=== PATIENT | male | born 1990 | race African-American/Black ===

== ENCOUNTER 2016-12-17 11:13 | Inpatient (IN) | payer MEDICAID ==
[~2016-12-17] VITALS: Ht 195.6 cm; Wt 83.8 kg
[~2016-12-17 11:13] MED LIST: NOCURR
[2016-12-17 11:58] LABS: BASOPHILS # (AUTO) 0.03 K/uL (0.00-0.20); BASOPHILS % (AUTO) 0.8 % (0.0-2.0); EOSINOPHILS # (AUTO) 0.19 K/uL (0.00-0.70); EOSINOPHILS % (AUTO) 5.58 % (1.0-6.0); HEMATOCRIT 43.7 % (41-53); HEMOGLOBIN 14.8 g/dL (13.5-17.5); LYMPHOCYTES # (AUTO) 1.2 K/uL (1.0-4.8); MEAN CORPUSCULAR HEMOGLOBIN 27.4 pg (26.0-34.0); MEAN CORPUSCULAR HGB CONC 33.8 G/dL (31.0-37.0); MEAN CORPUSCULAR VOLUME 81 fL (80-100); MONOCYTES # (AUTO) 0.5 K/uL (0.1-1.0); MONOCYTES % (AUTO) 13.3 % (2.0-9.0); NEUTROPHILS # (AUTO) 1.5 K/uL (1.8-7.7); NEUTROPHILS % (AUTO) 45.4 % (40.0-70.0); PLATELET COUNT (AUTO) 295 K/uL (150-450); RED CELL DISTRIBUTION WIDTH 14.7 % (11.5-14.5); WHITE BLOOD COUNT (AUTO) 3.4 K/uL (4.5-11.0)
[2016-12-17 12:52] LABS: ALANINE AMINOTRANSFERASE 21 U/L (12-78); ALBUMIN 3.6 g/dL (3.4-5.0); ANION GAP 3 mmol/L (8-16); ASPARTATE AMINOTRANSFERASE 18 U/L (15-37); BILIRUBIN,TOTAL 1.7 mg/dL (0.1-1.0); CALCIUM, TOTAL 8.4 mg/dL (8.8-10.5); CARBON DIOXIDE 31 mmol/L (22-29); CHLORIDE 105 mmol/L (98-107); CREATININE 1.26 mg/dL (0.60-1.30); GLOMERULAR FILTR. RATE CALC > 60 mL/min (>60); SODIUM SERUM 139 mmol/L (136-145); TOTAL PROTEIN, SERUM 6.3 g/dL (6.4-8.2); UREA NITROGEN, BLOOD 14 mg/dL (7-18)
[2016-12-17 13:08] LABS: RBC MORPHOLOGY COMMENT NORMAL RBC MORPH
[2016-12-17] MEDS ORDERED: HALOPERIDOL 5 MG TABLET PO PRN (15:00)
[2016-12-17] MEDS ORDERED: ZOLPIDEM TARTRATE 10 MG TABLET PO PRN (15:00)
[2016-12-17 17:12] VITALS: BP 122/77
[2016-12-17 18:05] LABS: APPEARANCE,URINE CLEAR (CLEAR); GLUCOSE, URINE (UA) NEGATIVE (NEGATIVE); KETONES,URINE TRACE mg/dL (NEGATIVE); LEUKOCYTE ESTERASE ,URINE NEGATIVE (NEGATIVE); OCCULT BLOOD,URINE NEGATIVE (NEGATIVE); PROTEIN,URINE NEGATIVE (NEGATIVE)
[2016-12-17 18:06] LABS: ADD UA MICROSCOPIC NO
[2016-12-18 09:23] VITALS: BP 99/65
[2016-12-18] MEDS ORDERED: MAG HYDROX/AL HYDROX/SIMETH ES 30 ML SUSPENSION UDCUP PO PRN (10:30)
[2016-12-18] MEDS ORDERED: MAGNESIUM HYDROXIDE SUSPENSION 30 ML UDCUP PO PRN (10:30)
[2016-12-18] MEDS ORDERED: BACITRACIN 28.4 GM OINTMENT TP PRN (10:30)
[2016-12-18] MEDS ORDERED: ONDANSETRON HCL 4 MG TABLET PO PRN (10:30)
[2016-12-18] MEDS ORDERED: IBUPROFEN 600 MG TABLET PO PRN (10:30)
[2016-12-18] MEDS ORDERED: ALBUTEROL SULFATE HFA 90 MCG/PUFF 8 GM INHALER IH PRN (10:30)
[2016-12-18] MEDS ORDERED: LOPERAMIDE HCL 2 MG CAPSULE PO PRN (10:30)
[2016-12-18] MEDS ORDERED: CloNIDine HCL 0.1 MG TABLET PO PRN (10:30)
[2016-12-18] MEDS ORDERED: PETROLATUM,WHITE 71 GM JELLY TP PRN (10:30)
[2016-12-18] MEDS ORDERED: ACETAMINOPHEN 325 MG TABLET PO PRN (10:30)
[2016-12-18] MEDS ORDERED: BENZOCAINE/MENTHOL LOZENGE [8 LOZENGES/PACKET] MM PRN (10:45)
[2016-12-18] MEDS: SERTRALINE HCL 50 MG TABLET PO SCH (11:23)
[2016-12-18 16:00] VITALS: BP 121/75
[2016-12-18] MEDS: LORazepam 2 MG TABLET PO PRN (16:09)
[2016-12-19] MEDS: SERTRALINE HCL 50 MG TABLET PO SCH (09:16)
[2016-12-19 09:28] VITALS: BP 122/71
[2016-12-19] MEDS: LORazepam 2 MG TABLET PO PRN (16:23)
[2016-12-20 09:00] VITALS: BP 100/54
[2016-12-20] MEDS: SERTRALINE HCL 50 MG TABLET PO SCH (09:05)
[2016-12-20 17:01] VITALS: BP 108/61
[2016-12-21] MEDS: SERTRALINE HCL 50 MG TABLET PO SCH (08:16)
[2016-12-21 09:00] VITALS: BP 105/64
[2016-12-21 16:55] VITALS: BP 112/68
[2016-12-22] MEDS ORDERED: SERT50TA12 PO (04:00)
== END 2016-12-22 07:30 | disposition home or self-care (01) | DRG 751 ==
LOC: EMS 11:15 → 3EI 16:15
PROVIDERS: ADMIT Psychiatry & Neurology Child & Adolescent Psychiatry; ATTEND Psychiatry & Neurology Child & Adolescent Psychiatry
DX: F32.2 Major depressive disorder, single episode, severe without psychotic features (principal); R45.851 Suicidal ideations; F12.90 Cannabis use, unspecified, uncomplicated; F15.10 Other stimulant abuse, uncomplicated; F17.200 Nicotine dependence, unspecified, uncomplicated
CPT/HCPCS: 99285; G0480

== ENCOUNTER 2016-12-29 19:05 | Inpatient (IN) | payer MEDICAID ==
[~2016-12-29] VITALS: Ht 195.6 cm; Wt 92.1 kg
[~2016-12-29 19:05] MED LIST changes: -NOCURR; +SERT50TA12 PO
[2016-12-29 22:13] VITALS: BP 127/85
[2016-12-30] MEDS: ZOLPIDEM TARTRATE 10 MG TABLET PO PRN ×2 (00:04→21:04)
[2016-12-30 00:07] VITALS: BP 119/62
[2016-12-30] MEDS ORDERED: PETROLATUM,WHITE 71 GM JELLY TP PRN (08:15)
[2016-12-30] MEDS ORDERED: IBUPROFEN 600 MG TABLET PO PRN (08:15)
[2016-12-30] MEDS ORDERED: ACETAMINOPHEN 325 MG TABLET PO PRN (08:15)
[2016-12-30] MEDS ORDERED: MAGNESIUM HYDROXIDE SUSPENSION 30 ML UDCUP PO PRN (08:15)
[2016-12-30] MEDS ORDERED: LOPERAMIDE HCL 2 MG CAPSULE PO PRN (08:15)
[2016-12-30] MEDS ORDERED: MAG HYDROX/AL HYDROX/SIMETH ES 30 ML SUSPENSION UDCUP PO PRN (08:15)
[2016-12-30] MEDS ORDERED: BACITRACIN 28.4 GM OINTMENT TP PRN (08:15)
[2016-12-30] MEDS ORDERED: ALBUTEROL SULFATE HFA 90 MCG/PUFF 8 GM INHALER IH PRN (08:15)
[2016-12-30] MEDS ORDERED: CloNIDine HCL 0.1 MG TABLET PO PRN (08:15)
[2016-12-30] MEDS ORDERED: BENZOCAINE/MENTHOL LOZENGE MM PRN (08:15)
[2016-12-30] MEDS ORDERED: ONDANSETRON HCL 4 MG TABLET PO PRN (08:15)
[2016-12-30 08:31] VITALS: BP 105/65
[2016-12-30 08:34] LABS: BASOPHILS % (AUTO) 0.6 % (0.0-2.0); EOSINOPHILS % (AUTO) 4.9 % (1.0-6.0); HEMATOCRIT 42.2 % (41-53); HEMOGLOBIN 14.1 g/dL (13.5-17.5); LYMPHOCYTES # (AUTO) 1.8 K/uL (1.0-4.8); LYMPHOCYTES % (AUTO) 43.8 % (22.0-44.0); MEAN CORPUSCULAR HEMOGLOBIN 27.5 pg (26.0-34.0); MEAN CORPUSCULAR HGB CONC 33.4 G/dL (31.0-37.0); MEAN CORPUSCULAR VOLUME 82 fL (80-100); MONOCYTES # (AUTO) 0.4 K/uL (0.1-1.0); MONOCYTES % (AUTO) 8.4 % (2.0-9.0); NEUTROPHILS # (AUTO) 1.8 K/uL (1.8-7.7); NEUTROPHILS % (AUTO) 42.3 % (40.0-70.0); PLATELET COUNT (AUTO) 235 K/uL (150-450); RED BLOOD CELL COUNT(AUTO) 5.13 MIL/uL (4.50-5.90); RED CELL DISTRIBUTION WIDTH 15.2 % (11.5-14.5); WHITE BLOOD COUNT (AUTO) 4.2 K/uL (4.5-11.0)
[2016-12-30 09:40] LABS: ALANINE AMINOTRANSFERASE 23 U/L (12-78); ALBUMIN 3.6 g/dL (3.4-5.0); ANION GAP 7 mmol/L (8-16); ASPARTATE AMINOTRANSFERASE 14 U/L (15-37); BILIRUBIN,TOTAL 0.9 mg/dL (0.1-1.0); CALCIUM, TOTAL 8.8 mg/dL (8.8-10.5); CARBON DIOXIDE 30 mmol/L (22-29); CHLORIDE 101 mmol/L (98-107); CREATININE 1.13 mg/dL (0.60-1.30); GLOMERULAR FILTR. RATE CALC > 60 mL/min (>60); POTASSIUM 3.9 mmol/L (3.5-5.1); SODIUM SERUM 138 mmol/L (136-145); THYROID STIMULATING HORMONE 2.47 uIU/mL (0.36-3.74); TOTAL PROTEIN, SERUM 6.4 g/dL (6.4-8.2); UREA NITROGEN, BLOOD 17 mg/dL (7-18)
[2016-12-30] MEDS: SERTRALINE HCL 50 MG TABLET PO SCH (09:55)
[2016-12-30] MEDS: LORazepam 2 MG TABLET PO PRN ×2 (09:55→22:54)
[2016-12-30 16:04] VITALS: BP 113/63
[2016-12-31 06:00] VITALS: BP 103/60
[2016-12-31 08:38] VITALS: BP 110/65
[2016-12-31] MEDS: SERTRALINE HCL 50 MG TABLET PO SCH ×2 (08:53→09:00)
[2016-12-31] MEDS: LORazepam 2 MG TABLET PO PRN ×3 (08:53→17:20)
[2016-12-31] MEDS: HALOPERIDOL 5 MG TABLET PO PRN (12:50)
[2016-12-31 16:22] VITALS: BP 114/65
[2016-12-31] MEDS: ZOLPIDEM TARTRATE 10 MG TABLET PO PRN (20:12)
[2017-01-01 00:32] VITALS: BP 113/62
[2017-01-01 08:23] VITALS: BP 115/68
[2017-01-01] MEDS: LORazepam 2 MG TABLET PO PRN (08:37)
[2017-01-01] MEDS: SERTRALINE HCL 50 MG TABLET PO SCH (08:37)
[2017-01-01] MEDS: HALOPERIDOL 5 MG TABLET PO PRN (08:37)
[2017-01-01 16:00] VITALS: BP 111/71
[2017-01-02 06:29] VITALS: BP 114/68
[2017-01-02] MEDS: SERTRALINE HCL 50 MG TABLET PO SCH (08:11)
[2017-01-02 08:33] VITALS: BP 110/62
[2017-01-02 08:43] LABS: APPEARANCE,URINE CLOUDY (CLEAR); GLUCOSE, URINE (UA) NEGATIVE (NEGATIVE); KETONES,URINE NEGATIVE (NEGATIVE); LEUKOCYTE ESTERASE ,URINE NEGATIVE (NEGATIVE); OCCULT BLOOD,URINE NEGATIVE (NEGATIVE); PROTEIN,URINE NEGATIVE (NEGATIVE)
[2017-01-02 08:47] LABS: ADD UA MICROSCOPIC NO
[2017-01-02 16:11] VITALS: BP 112/66
[2017-01-02] MEDS: ZOLPIDEM TARTRATE 10 MG TABLET PO PRN (20:12)
[2017-01-03 00:17] VITALS: BP 112/62
[2017-01-03] MEDS: LORazepam 2 MG TABLET PO PRN ×2 (00:17→12:05)
[2017-01-03] MEDS: HALOPERIDOL 5 MG TABLET PO PRN (01:32)
[2017-01-03] MEDS: SERTRALINE HCL 50 MG TABLET PO SCH (08:18)
[2017-01-03 08:30] VITALS: BP_SYST 104; BP_SYST 119; BP_DIAS 54; BP_DIAS 79
[2017-01-03 16:02] VITALS: BP 112/68
[2017-01-03] MEDS: ZOLPIDEM TARTRATE 10 MG TABLET PO PRN (20:57)
[2017-01-03 23:05] VITALS: BP 118/83
[2017-01-04 01:33] VITALS: BP_SYST 105; BP_SYST 110; BP_DIAS 62
[2017-01-04] MEDS: LORazepam 2 MG TABLET PO PRN (01:49)
[2017-01-04] MEDS: SERTRALINE HCL 50 MG TABLET PO SCH (08:24)
[2017-01-04 08:48] VITALS: BP 92/51
[2017-01-04 09:45] VITALS: BP 112/77
== END 2017-01-04 13:50 | disposition home or self-care (01) | DRG 751 ==
LOC: EDSTATUS 22:38 → B3A 22:55 → B2S 01-01 16:30
PROVIDERS: ATTEND Psychiatry & Neurology Child & Adolescent Psychiatry
DX: F33.2 Major depressive disorder, recurrent severe without psychotic features (principal); R45.851 Suicidal ideations; F19.10 Other psychoactive substance abuse, uncomplicated; F12.90 Cannabis use, unspecified, uncomplicated; F15.10 Other stimulant abuse, uncomplicated; F17.200 Nicotine dependence, unspecified, uncomplicated; G47.00 Insomnia, unspecified; Z71.51 Drug abuse counseling and surveillance of drug abuser; Z56.0 Unemployment, unspecified; Z71.6 Tobacco abuse counseling; Z79.899 Other long term (current) drug therapy; Z59.0 Homelessness
CPT/HCPCS: 80307; 84436; 84439; 84443; 87081

== ENCOUNTER 2017-11-18 16:26 | Emergency (ER) | payer SELFPAY ==
[~2017-11-18] VITALS: Ht 195.6 cm; Wt 89.0 kg
[2017-11-18] MEDS ORDERED: MIRT15 PO (16:31)
[2017-11-18] MEDS ORDERED: RISP2 PO (16:31)
[2017-11-18 17:12] VITALS: BP 131/76
== END 2017-11-18 17:40 | disposition left against medical advice (07) ==
LOC: EMS 16:27
DX: R07.9 Chest pain, unspecified (principal); F41.9 Anxiety disorder, unspecified; F31.9 Bipolar disorder, unspecified; Z79.899 Other long term (current) drug therapy
CPT/HCPCS: 93005; 99283

== ENCOUNTER 2017-11-18 18:01 | Emergency (ER) | payer OTHER ==
[~2017-11-18] VITALS: Ht 195.6 cm; Wt 89.0 kg
[~2017-11-18 18:01] MED LIST changes: +MIRT15 PO; +RISP2 PO
[2017-11-18 19:24] VITALS: BP 126/84
== END 2017-11-18 19:31 | disposition home or self-care (01) ==
LOC: EMS 18:07
DX: R07.9 Chest pain, unspecified (principal); F31.9 Bipolar disorder, unspecified; F41.9 Anxiety disorder, unspecified; Z76.5 Malingerer [conscious simulation]; Z79.899 Other long term (current) drug therapy
CPT/HCPCS: 99281

== ENCOUNTER 2017-11-21 14:53 | Emergency (ER) | payer OTHER ==
[~2017-11-21] VITALS: Ht 193 cm; Wt 89.5 kg
[2017-11-21 15:57] VITALS: BP 133/80
[2017-11-21 16:09] LABS: BASOPHILS % (AUTO) 0.9 % (0.0-2.0); EOSINOPHILS % (AUTO) 0.6 % (1.0-6.0); HEMOGLOBIN 14.5 g/dL (13.5-17.5); LYMPHOCYTES # (AUTO) 1.5 K/uL (1.0-4.8); LYMPHOCYTES % (AUTO) 17.3 % (22.0-44.0); MEAN CORPUSCULAR HGB CONC 35.4 G/dL (31.0-37.0); MEAN CORPUSCULAR VOLUME 79 fL (80-100); MONOCYTES % (AUTO) 11.1 % (2.0-9.0); NEUTROPHILS # (AUTO) 6.2 K/uL (1.8-7.7); NEUTROPHILS % (AUTO) 70.1 % (40.0-70.0); PLATELET COUNT (AUTO) 247 K/uL (150-450); RED BLOOD CELL COUNT(AUTO) 5.18 MIL/uL (4.50-5.90); RED CELL DISTRIBUTION WIDTH 14.1 % (11.5-14.5)
[2017-11-21 16:31] LABS: ANION GAP 8 mmol/L (8-16); CALCIUM, TOTAL 9.2 mg/dL (8.8-10.5); CARBON DIOXIDE 27 mmol/L (22-29); CHLORIDE 98 mmol/L (98-107); CREATININE 1.16 mg/dL (0.60-1.30); GLOMERULAR FILTR. RATE CALC > 60 mL/min (>60); GLUCOSE,RANDOM 84 mg/dL (70-110); POTASSIUM 3.9 mmol/L (3.5-5.1); SODIUM SERUM 133 mmol/L (136-145); UREA NITROGEN, BLOOD 21 mg/dL (7-18)
[2017-11-21 16:38] LABS: ALANINE AMINOTRANSFERASE 165 U/L (12-78); ALBUMIN 4.3 g/dL (3.4-5.0); ALKALINE PHOSPHATASE 57 U/L (46-116); ASPARTATE AMINOTRANSFERASE 89 U/L (15-37); BILIRUBIN,TOTAL 2.3 mg/dL (0.1-1.0); TOTAL PROTEIN, SERUM 7.5 g/dL (6.4-8.2)
[2017-11-21 18:04] LABS: AMPHET/METH SCREEN,URINE POSITIVE (NEGATIVE); BARBITURATE SCREEN, URINE NEGATIVE (NEGATIVE); BENZODIAZEPINES SCREEN,URINE NEGATIVE (NEGATIVE); CANNABINOID SCREEN,URINE NEGATIVE (NEGATIVE); COCAINE SCREEN,URINE NEGATIVE (NEGATIVE); METHADONE SCREEN, URINE NEGATIVE (NEGATIVE); OPIATE SCREEN,URINE NEGATIVE (NEGATIVE)
[2017-11-21 18:05] LABS: PHENCYCLIDINE SCREEN,URINE NEGATIVE (NEGATIVE)
== END 2017-11-21 18:07 | disposition home or self-care (01) ==
LOC: EMS 14:54
DX: F31.9 Bipolar disorder, unspecified (principal); F15.10 Other stimulant abuse, uncomplicated; F12.90 Cannabis use, unspecified, uncomplicated; F17.210 Nicotine dependence, cigarettes, uncomplicated; Z59.0 Homelessness
CPT/HCPCS: 36415; 80053; 80307; 85025; 99284; 99406; G0480

== ENCOUNTER 2019-10-09 09:07 | Emergency (ER) | payer OTHER ==
[~2019-10-09] VITALS: Ht 195.6 cm; Wt 89.5 kg
[~2019-10-09 09:07] MED LIST changes: +IBUP-2271 PO; -MIRT15 PO; -RISP2 PO; -SERT50TA12 PO
[2019-10-09 09:13] VITALS: BP 120/72
[2019-10-09] MEDS ORDERED: BENZOCAINE 20% 50 MCG/SPRAY 57 GM TP ONE (10:30)
[2019-10-09] MEDS ORDERED: POVIDONE-IODINE 10% 15 ML SOLUTION UD TP ONE (10:30)
[2019-10-09] MEDS ORDERED: IBUPROFEN 800 MG TABLET PO ONE (10:30)
== END 2019-10-09 11:21 | disposition home or self-care (01) ==
LOC: EMS 09:10
DX: L03.011 Cellulitis of right finger (principal); F41.9 Anxiety disorder, unspecified; F31.9 Bipolar disorder, unspecified; F17.210 Nicotine dependence, cigarettes, uncomplicated; F12.90 Cannabis use, unspecified, uncomplicated; F19.90 Other psychoactive substance use, unspecified, uncomplicated
CPT/HCPCS: 10060

== ENCOUNTER 2019-11-27 15:01 | Emergency (ER) | payer OTHER ==
[~2019-11-27] VITALS: Ht 195.6 cm; Wt 88.6 kg
[2019-11-27] MEDS ORDERED: METHOCARBAMOL 500 MG TABLET PO ONE (16:30)
[2019-11-27] MEDS ORDERED: IBUPROFEN 800 MG TABLET PO ONE (16:30)
[2019-11-27] MEDS ORDERED: LIDOCAINE 5% TRANSDERMAL PATCH TD ONE (16:30)
[2019-11-27 18:06] VITALS: BP 119/74
== END 2019-11-27 18:50 | disposition home or self-care (01) ==
LOC: EMS 15:07
DX: M54.2 Cervicalgia (principal); R05 Cough; Z03.818 Encounter for observation for suspected exposure to other biological agents ruled out; F41.9 Anxiety disorder, unspecified; F31.9 Bipolar disorder, unspecified; F17.210 Nicotine dependence, cigarettes, uncomplicated; F12.90 Cannabis use, unspecified, uncomplicated; F19.90 Other psychoactive substance use, unspecified, uncomplicated
CPT/HCPCS: 72040; 87635

== ENCOUNTER 2020-01-21 10:00 | Emergency (ER) | payer OTHER ==
[~2020-01-21] VITALS: Ht 182.9 cm; Wt 77.3 kg
[2020-01-21 10:02] VITALS: BP 134/64
== END 2020-01-21 11:20 | disposition home or self-care (01) ==
LOC: EDUNIT# 10:00 → EMS 10:06
DX: Z03.818 Encounter for observation for suspected exposure to other biological agents ruled out (principal); R03.0 Elevated blood-pressure reading, without diagnosis of hypertension; F31.9 Bipolar disorder, unspecified; F41.9 Anxiety disorder, unspecified; F12.90 Cannabis use, unspecified, uncomplicated; F15.90 Other stimulant use, unspecified, uncomplicated; F17.210 Nicotine dependence, cigarettes, uncomplicated
CPT/HCPCS: 99283; U0003

== ENCOUNTER 2020-02-15 12:21 | Inpatient (IN) | payer MEDICAID ==
[~2020-02-15] VITALS: Ht 195.6 cm; Wt 85.2 kg
[2020-02-15] MEDS ORDERED: HALOPERIDOL 5 MG TABLET PO PRN (15:30)
[2020-02-15] MEDS ORDERED: LORazepam 2 MG TABLET PO PRN (15:30)
[2020-02-15 16:15] VITALS: BP 116/81
[2020-02-15] MEDS ORDERED: SERT100T12 PO (16:41)
[2020-02-15 17:25] VITALS: BP 112/70
[2020-02-15] MEDS: ZOLPIDEM TARTRATE 10 MG TABLET PO PRN (20:45)
[2020-02-16 01:14] VITALS: BP 114/71
[2020-02-16 07:32] LABS: BASOPHILS % (AUTO) 0.2 % (0.0-2.0); EOSINOPHILS % (AUTO) 8.1 % (1.0-6.0); HEMATOCRIT 37.2 % (41-53); HEMOGLOBIN 13.3 g/dL (13.5-17.5); LYMPHOCYTES # (AUTO) 1.5 K/uL (1.0-4.8); LYMPHOCYTES % (AUTO) 45.2 % (22.0-44.0); MEAN CORPUSCULAR HEMOGLOBIN 28.4 pg (26.0-34.0); MEAN CORPUSCULAR HGB CONC 35.7 G/dL (31.0-37.0); MEAN CORPUSCULAR VOLUME 80 fL (80-100); MONOCYTES # (AUTO) 0.5 K/uL (0.1-1.0); MONOCYTES % (AUTO) 15.4 % (2.0-9.0); NEUTROPHILS % (AUTO) 31.1 % (40.0-70.0); PLATELET COUNT (AUTO) 225 K/uL (150-450); RED BLOOD CELL COUNT(AUTO) 4.67 MIL/uL (4.50-5.90); RED CELL DISTRIBUTION WIDTH 14.3 % (11.5-14.5)
[2020-02-16 07:53] LABS: ALANINE AMINOTRANSFERASE 23 U/L (12-78); ALBUMIN 3.5 g/dL (3.4-5.0); ALKALINE PHOSPHATASE 54 U/L (46-116); ANION GAP 1 mmol/L (8-16); ASPARTATE AMINOTRANSFERASE 21 U/L (15-37); BILIRUBIN,TOTAL 1.2 mg/dL (0.1-1.0); CALCIUM, TOTAL 8.6 mg/dL (8.8-10.5); CARBON DIOXIDE 31 mmol/L (22-29); CHLORIDE 104 mmol/L (98-107); CHOL/HDL RATIO 3.2 (4.2-7.3); CHOLESTEROL 132 mg/dL (131-200); CREATININE 1.14 mg/dL (0.60-1.30); FREE T4 (FREE THYROXINE) 0.92 ng/dL (0.76-1.46); GLOMERULAR FILTR. RATE CALC > 60 mL/min (>60); GLUCOSE,RANDOM 78 mg/dL (70-110); HDL CHOLESTEROL 41 mg/dL (40-60); LDL CHOL (CALC.) 71 mg/dL (0-130); SODIUM SERUM 136 mmol/L (136-145); THYROID STIMULATING HORMONE 0.92 uIU/mL (0.36-3.74); TOTAL PROTEIN, SERUM 6.6 g/dL (6.4-8.2); TRIGLYCERIDES 100 mg/dL (15-150); UREA NITROGEN, BLOOD 16 mg/dL (7-18)
[2020-02-16 09:41] VITALS: BP 121/79
[2020-02-16] MEDS: NICOTINE 21 MG/24 HOUR PATCH TD SCH (09:56)
[2020-02-16] MEDS ORDERED: SERT50TA12 PO (12:21)
[2020-02-16 16:10] VITALS: BP 106/74
[2020-02-16] MEDS: ZOLPIDEM TARTRATE 10 MG TABLET PO PRN (20:51)
[2020-02-16] MEDS ORDERED: OLANZapine 10 MG TABLET PO SCH (21:00)
[2020-02-17 05:31] VITALS: BP 100/65
[2020-02-17 07:59] LABS: APPEARANCE,URINE CLEAR (CLEAR); BILIRUBIN,URINE NEGATIVE (NEGATIVE); GLUCOSE, URINE (UA) NEGATIVE (NEGATIVE); KETONES,URINE NEGATIVE (NEGATIVE); LEUKOCYTE ESTERASE ,URINE NEGATIVE (NEGATIVE); NITRATE,URINE NEGATIVE (NEGATIVE); OCCULT BLOOD,URINE NEGATIVE (NEGATIVE); PROTEIN,URINE NEGATIVE (NEGATIVE)
[2020-02-17 08:11] LABS: AMPHET/METH SCREEN,URINE NEGATIVE (NEGATIVE); BARBITURATE SCREEN, URINE NEGATIVE (NEGATIVE); BENZODIAZEPINES SCREEN,URINE NEGATIVE (NEGATIVE); CANNABINOID SCREEN,URINE POSITIVE (NEGATIVE); COCAINE SCREEN,URINE NEGATIVE (NEGATIVE); METHADONE SCREEN, URINE NEGATIVE (NEGATIVE); OPIATE SCREEN,URINE NEGATIVE (NEGATIVE); PHENCYCLIDINE SCREEN,URINE NEGATIVE (NEGATIVE)
[2020-02-17 09:06] VITALS: BP 104/54
[2020-02-17] MEDS: NICOTINE 21 MG/24 HOUR PATCH TD SCH (09:48)
[2020-02-17] MEDS ORDERED: OLAN10TA3 PO (15:18)
== END 2020-02-17 20:18 | disposition home or self-care (01) | DRG 885 ==
LOC: B2S 17:01
PROVIDERS: ADMIT Psychiatry & Neurology Psychiatry; ATTEND Psychiatry & Neurology Psychiatry
DX: F25.9 Schizoaffective disorder, unspecified (principal); F32.9 Major depressive disorder, single episode, unspecified; G47.00 Insomnia, unspecified; K59.00 Constipation, unspecified; F41.9 Anxiety disorder, unspecified; F19.10 Other psychoactive substance abuse, uncomplicated; Z72.0 Tobacco use
CPT/HCPCS: 80307; 84439; 84443

== ENCOUNTER 2020-03-07 06:14 | Inpatient (IN) | payer MEDICAID, OTHER ==
[~2020-03-07] VITALS: Ht 193 cm; Wt 80.8 kg
[~2020-03-07 06:14] MED LIST changes: -IBUP-2271 PO; +OLAN10TA3 PO
[2020-03-07 06:44] LABS: BASOPHILS % (AUTO) 1.6 % (0.0-2.0); EOSINOPHILS % (AUTO) 1.3 % (1.0-6.0); HEMATOCRIT 37.1 % (41-53); HEMOGLOBIN 12.9 g/dL (13.5-17.5); LYMPHOCYTES % (AUTO) 24.8 % (22.0-44.0); MEAN CORPUSCULAR HGB CONC 34.9 G/dL (31.0-37.0); MEAN CORPUSCULAR VOLUME 80 fL (80-100); MONOCYTES # (AUTO) 0.3 K/uL (0.1-1.0); MONOCYTES % (AUTO) 8.2 % (2.0-9.0); NEUTROPHILS # (AUTO) 2.6 K/uL (1.8-7.7); NEUTROPHILS % (AUTO) 64.1 % (40.0-70.0); PLATELET COUNT (AUTO) 231 K/uL (150-450); RED BLOOD CELL COUNT(AUTO) 4.61 MIL/uL (4.50-5.90); RED CELL DISTRIBUTION WIDTH 14.5 % (11.5-14.5)
[2020-03-07 06:50] LABS: ANION GAP 6 mmol/L (8-16); CALCIUM, TOTAL 9.2 mg/dL (8.8-10.5); CARBON DIOXIDE 30 mmol/L (22-29); CHLORIDE 100 mmol/L (98-107); CREATININE 1.21 mg/dL (0.60-1.30); GLOMERULAR FILTR. RATE CALC > 60 mL/min (>60); GLUCOSE,RANDOM 90 mg/dL (70-110); POTASSIUM 3.9 mmol/L (3.5-5.1); SODIUM SERUM 136 mmol/L (136-145); UREA NITROGEN, BLOOD 21 mg/dL (7-18)
[2020-03-07 06:55] LABS: ALANINE AMINOTRANSFERASE 22 U/L (12-78); ALKALINE PHOSPHATASE 62 U/L (46-116); ASPARTATE AMINOTRANSFERASE 20 U/L (15-37); BILIRUBIN,TOTAL 0.7 mg/dL (0.1-1.0); TOTAL PROTEIN, SERUM 7.2 g/dL (6.4-8.2)
[2020-03-07 07:15] LABS: AMPHET/METH SCREEN,URINE POSITIVE (NEGATIVE); BARBITURATE SCREEN, URINE NEGATIVE (NEGATIVE); BENZODIAZEPINES SCREEN,URINE NEGATIVE (NEGATIVE); CANNABINOID SCREEN,URINE POSITIVE (NEGATIVE); COCAINE SCREEN,URINE NEGATIVE (NEGATIVE); METHADONE SCREEN, URINE NEGATIVE (NEGATIVE); OPIATE SCREEN,URINE NEGATIVE (NEGATIVE)
[2020-03-07 07:16] LABS: PHENCYCLIDINE SCREEN,URINE NEGATIVE (NEGATIVE)
[2020-03-07] MEDS ORDERED: HALOPERIDOL 5 MG TABLET PO PRN (10:30)
[2020-03-07] MEDS ORDERED: ZOLPIDEM TARTRATE 10 MG TABLET PO PRN (10:30)
[2020-03-07] MEDS ORDERED: LORazepam 2 MG TABLET PO PRN (10:30)
[2020-03-07 12:30] VITALS: BP 128/93
[2020-03-07] MEDS ORDERED: PNEUMOCOCCAL VACCINE POLYVALENT 0.5 ML VIAL [PPSV23] IM ONE (13:15)
[2020-03-07 16:34] VITALS: BP 109/69
[2020-03-07] MEDS: OLANZapine 5 MG TABLET PO SCH (20:30)
[2020-03-07 20:47] VITALS: BP 105/68
[2020-03-08 05:13] VITALS: BP 122/95
[2020-03-08] MEDS ORDERED: MAGNESIUM HYDROXIDE SUSPENSION 30 ML UDCUP PO PRN (08:15)
[2020-03-08] MEDS ORDERED: ONDANSETRON HCL 4 MG TABLET PO PRN (08:15)
[2020-03-08] MEDS ORDERED: BENZOCAINE/MENTHOL LOZENGE PO PRN (08:15)
[2020-03-08] MEDS ORDERED: IBUPROFEN 600 MG TABLET PO PRN (08:15)
[2020-03-08] MEDS ORDERED: LOPERAMIDE HCL 2 MG CAPSULE PO PRN (08:15)
[2020-03-08] MEDS ORDERED: BACITRACIN 28.4 GM OINTMENT TP PRN (08:15)
[2020-03-08] MEDS ORDERED: CloNIDine HCL 0.1 MG TABLET PO PRN (08:15)
[2020-03-08] MEDS ORDERED: DOCUSATE SODIUM 100 MG CAPSULE PO PRN (08:15)
[2020-03-08] MEDS ORDERED: ACETAMINOPHEN 325 MG TABLET PO PRN (08:15)
[2020-03-08] MEDS ORDERED: OMEPRAZOLE 20 MG CAPSULE PO PRN (08:15)
[2020-03-08] MEDS ORDERED: ALBUTEROL SULFATE HFA 90 MCG/PUFF 8 GM INHALER IH PRN (08:15)
[2020-03-08] MEDS ORDERED: MAG HYDROX/AL HYDROX/SIMETH ES 30 ML SUSPENSION UDCUP PO PRN (08:15)
[2020-03-08] MEDS ORDERED: PETROLATUM,WHITE 28 GM JELLY TP PRN (08:15)
[2020-03-08 08:37] VITALS: BP 102/60
[2020-03-08 16:17] VITALS: BP 129/68
[2020-03-08] MEDS: OLANZapine 5 MG TABLET PO SCH (21:01)
[2020-03-09 05:28] VITALS: BP 116/76
[2020-03-09 08:57] VITALS: BP 117/70
[2020-03-09 16:09] VITALS: BP 117/68
[2020-03-10] MEDS ORDERED: FOLIC ACID 1 MG TABLET PO SCH (09:00)
[2020-03-10] MEDS ORDERED: MULTIVITAMINS WITH MINERALS, THERAPEUTIC TABLET PO SCH (09:00)
[2020-03-10] MEDS ORDERED: THIAMINE 100 MG TABLET PO SCH (09:00)
== END 2020-03-09 19:15 | disposition home or self-care (01) | DRG 885 ==
LOC: EMS 06:14 → B2S 10:39
PROVIDERS: ADMIT Psychiatry & Neurology Psychiatry; ATTEND Psychiatry & Neurology Psychiatry
DX: F20.0 Paranoid schizophrenia (principal); R45.851 Suicidal ideations; F15.10 Other stimulant abuse, uncomplicated; F17.210 Nicotine dependence, cigarettes, uncomplicated; F12.90 Cannabis use, unspecified, uncomplicated; K59.00 Constipation, unspecified; G47.00 Insomnia, unspecified; F32.9 Major depressive disorder, single episode, unspecified; F41.9 Anxiety disorder, unspecified; Z91.14 Patient's other noncompliance with medication regimen; Z28.21 Immunization not carried out because of patient refusal; Z79.899 Other long term (current) drug therapy
CPT/HCPCS: 87081; G0480

== ENCOUNTER 2020-08-21 20:22 | Emergency (ER) | payer MEDICAID, OTHER ==
[~2020-08-21] VITALS: Ht 193 cm; Wt 90.9 kg
[2020-08-22] MEDS ORDERED: DEXAMETHASONE SOD PHOS 4 MG/ML 5 ML VIAL IM ONE (00:30)
[2020-08-22] MEDS ORDERED: KETOROLAC TROMETHAMINE 30 MG/ML VIAL IM ONE (00:30)
[2020-08-22 02:02] VITALS: BP 119/79
== END 2020-08-22 02:12 | disposition home or self-care (01) ==
LOC: EMS 20:26
DX: J02.0 Streptococcal pharyngitis (principal); F31.9 Bipolar disorder, unspecified; F20.9 Schizophrenia, unspecified; F41.9 Anxiety disorder, unspecified; F12.90 Cannabis use, unspecified, uncomplicated; F15.90 Other stimulant use, unspecified, uncomplicated; F17.210 Nicotine dependence, cigarettes, uncomplicated
CPT/HCPCS: 87430; 96372; 99284; J1100; J1885

== ENCOUNTER 2020-09-22 01:51 | Inpatient (IN) | payer MEDICAID, OTHER ==
[~2020-09-22] VITALS: Ht 193 cm; Wt 85.7 kg
[2020-09-22 02:41] LABS: BASOPHILS % (AUTO) 2.7 % (0.0-2.0); EOSINOPHILS % (AUTO) 2.1 % (1.0-6.0); HEMATOCRIT 40.7 % (41-53); HEMOGLOBIN 14.4 g/dL (13.5-17.5); LYMPHOCYTES # (AUTO) 1.3 K/uL (1.0-4.8); LYMPHOCYTES % (AUTO) 24.4 % (22.0-44.0); MEAN CORPUSCULAR HEMOGLOBIN 27.2 pg (26.0-34.0); MEAN CORPUSCULAR HGB CONC 35.3 G/dL (31.0-37.0); MEAN CORPUSCULAR VOLUME 77 fL (80-100); MONOCYTES # (AUTO) 0.6 K/uL (0.1-1.0); MONOCYTES % (AUTO) 11.9 % (2.0-9.0); NEUTROPHILS # (AUTO) 3.1 K/uL (1.8-7.7); NEUTROPHILS % (AUTO) 58.9 % (40.0-70.0); PLATELET COUNT (AUTO) 249 K/uL (150-450); RED BLOOD CELL COUNT(AUTO) 5.29 MIL/uL (4.50-5.90); RED CELL DISTRIBUTION WIDTH 15.7 % (11.5-14.5)
[2020-09-22 02:52] LABS: ANION GAP 11 mmol/L (8-16); CALCIUM, TOTAL 9.2 mg/dL (8.8-10.5); CARBON DIOXIDE 26 mmol/L (22-29); CHLORIDE 99 mmol/L (98-107); CREATININE 1.08 mg/dL (0.60-1.30); GLOMERULAR FILTR. RATE CALC > 60 mL/min (>60); GLUCOSE,RANDOM 79 mg/dL (70-110); POTASSIUM 4.2 mmol/L (3.5-5.1); SODIUM SERUM 136 mmol/L (136-145); UREA NITROGEN, BLOOD 21 mg/dL (7-18)
[2020-09-22 02:58] LABS: ALANINE AMINOTRANSFERASE 17 U/L (12-78); ALKALINE PHOSPHATASE 62 U/L (46-116); ASPARTATE AMINOTRANSFERASE 33 U/L (15-37); BILIRUBIN,TOTAL 2.2 mg/dL (0.1-1.0); TOTAL PROTEIN, SERUM 8.4 g/dL (6.4-8.2)
[2020-09-22 03:06] LABS: COVID AG,FIA SOURCE NASOPHARYNGEAL
[2020-09-22 03:14] LABS: ALBUMIN 4.5 g/dL (3.4-5.0)
[2020-09-22] MEDS ORDERED: ZOLPIDEM TARTRATE 10 MG TABLET PO PRN (03:15)
[2020-09-22] MEDS ORDERED: HALOPERIDOL 5 MG TABLET PO PRN (03:15)
[2020-09-22 04:49] LABS: AMPHET/METH SCREEN,URINE POSITIVE (NEGATIVE); BARBITURATE SCREEN, URINE NEGATIVE (NEGATIVE); BENZODIAZEPINES SCREEN,URINE NEGATIVE (NEGATIVE); CANNABINOID SCREEN,URINE POSITIVE (NEGATIVE); COCAINE SCREEN,URINE NEGATIVE (NEGATIVE); METHADONE SCREEN, URINE NEGATIVE (NEGATIVE); OPIATE SCREEN,URINE NEGATIVE (NEGATIVE)
[2020-09-22 04:57] LABS: PHENCYCLIDINE SCREEN,URINE NEGATIVE (NEGATIVE)
[2020-09-22 05:34] VITALS: BP 123/76
[2020-09-22] MEDS ORDERED: INFLUENZA VIRUS VACCINE QVS 2020-21 (6MO+)/PF 60 MCG/0.5 ML SYRINGE IM ONE (05:45)
[2020-09-22] MEDS: LORazepam 2 MG TABLET PO PRN (05:59)
[2020-09-22] MEDS ORDERED: ACETAMINOPHEN 325 MG TABLET PO PRN ×2 (07:30→09:15)
[2020-09-22] MEDS ORDERED: MAGNESIUM HYDROXIDE SUSPENSION 30 ML UDCUP PO PRN (09:15)
[2020-09-22] MEDS ORDERED: CloNIDine HCL 0.1 MG TABLET PO PRN (09:15)
[2020-09-22] MEDS ORDERED: NICOTINE 14 MG/24 HOUR PATCH TD PRN (09:15)
[2020-09-22] MEDS ORDERED: ONDANSETRON HCL 4 MG TABLET PO PRN (09:15)
[2020-09-22] MEDS ORDERED: DOCUSATE SODIUM 100 MG CAPSULE PO PRN (09:15)
[2020-09-22] MEDS ORDERED: LOPERAMIDE HCL 2 MG CAPSULE PO PRN (09:15)
[2020-09-22] MEDS ORDERED: PETROLATUM,WHITE 28 GM JELLY TP PRN (09:15)
[2020-09-22] MEDS ORDERED: GuaiFENesin/D-METHORPHAN [SUGAR-FREE] 200-20MG/10 ML SYRUP UDCUP PO PRN (09:15)
[2020-09-22] MEDS ORDERED: ALBUTEROL SULFATE HFA 90 MCG/PUFF 8 GM INHALER IH PRN (09:15)
[2020-09-22] MEDS ORDERED: MAG HYDROX/AL HYDROX/SIMETH ES 30 ML SUSPENSION UDCUP PO PRN (09:15)
[2020-09-22] MEDS ORDERED: IBUPROFEN 400 MG TABLET PO PRN (09:15)
[2020-09-22] MEDS: OLANZapine 5 MG TABLET PO SCH ×2 (12:37→16:50)
[2020-09-22 16:16] VITALS: BP 100/64
[2020-09-23 06:32] VITALS: BP 117/75
[2020-09-23 08:24] VITALS: BP 116/81
[2020-09-23] MEDS: BuPROPion HCL XL 150 MG ER TABLET PO SCH (08:54)
[2020-09-23] MEDS: OLANZapine 5 MG TABLET PO SCH ×2 (08:54→16:54)
[2020-09-23] MEDS: LORazepam 2 MG TABLET PO PRN (08:54)
[2020-09-23 16:10] VITALS: BP 132/75
[2020-09-24 00:32] VITALS: BP 123/75
[2020-09-24] MEDS: BuPROPion HCL XL 150 MG ER TABLET PO SCH (08:24)
[2020-09-24] MEDS: OLANZapine 5 MG TABLET PO SCH (08:24)
[2020-09-24 08:48] VITALS: BP 104/72
[2020-09-24] MEDS ORDERED: OLAN5TAB2 PO (15:46)
[2020-09-24] MEDS ORDERED: BUPR-93 PO (15:46)
[2020-09-24 16:13] VITALS: BP 107/74
== END 2020-09-24 20:01 | disposition home or self-care (01) | DRG 750 ==
LOC: EMS 01:52 → B2S 03:00
PROVIDERS: ADMIT Psychiatry & Neurology Psychiatry; ATTEND Psychiatry & Neurology Psychiatry
DX: F25.1 Schizoaffective disorder, depressive type (principal); R45.851 Suicidal ideations; F15.10 Other stimulant abuse, uncomplicated; I95.9 Hypotension, unspecified; E80.6 Other disorders of bilirubin metabolism; Z20.822 Contact with and (suspected) exposure to COVID-19; F12.90 Cannabis use, unspecified, uncomplicated; F41.9 Anxiety disorder, unspecified; F17.210 Nicotine dependence, cigarettes, uncomplicated; Z59.0 Homelessness; Z91.5 Personal history of self-harm
CPT/HCPCS: 87426; 99285; G0480

== ENCOUNTER 2021-02-14 06:44 | Inpatient (IN) | payer MEDICAID, OTHER ==
[~2021-02-14] VITALS: Ht 189.2 cm; Wt 85.8 kg
[~2021-02-14 06:44] MED LIST changes: +BUPR-93 PO; -OLAN10TA3 PO; +OLAN5TAB52 PO
[2021-02-14 08:33] LABS: BASOPHILS % (AUTO) 0.9 % (0.0-2.0); EOSINOPHILS % (AUTO) 6.2 % (1.0-6.0); HEMATOCRIT 46.2 % (41-53); HEMOGLOBIN 15.9 g/dL (13.5-17.5); LYMPHOCYTES # (AUTO) 1.4 K/uL (1.0-4.8); LYMPHOCYTES % (AUTO) 31.4 % (22.0-44.0); MEAN CORPUSCULAR HEMOGLOBIN 27.8 pg (26.0-34.0); MEAN CORPUSCULAR HGB CONC 34.5 G/dL (31.0-37.0); MEAN CORPUSCULAR VOLUME 81 fL (80-100); MONOCYTES # (AUTO) 0.5 K/uL (0.1-1.0); MONOCYTES % (AUTO) 10.8 % (2.0-9.0); NEUTROPHILS # (AUTO) 2.2 K/uL (1.8-7.7); NEUTROPHILS % (AUTO) 50.7 % (40.0-70.0); PLATELET COUNT (AUTO) 273 K/uL (150-450); RED BLOOD CELL COUNT(AUTO) 5.72 MIL/uL (4.50-5.90); RED CELL DISTRIBUTION WIDTH 13.6 % (11.5-14.5)
[2021-02-14 08:36] LABS: COVID AG,FIA SOURCE NASOPHARYNGEAL
[2021-02-14 08:44] LABS: ANION GAP 9 mmol/L (8-16); CALCIUM, TOTAL 9.5 mg/dL (8.8-10.5); CARBON DIOXIDE 29 mmol/L (22-29); CHLORIDE 102 mmol/L (98-107); CREATININE 1.02 mg/dL (0.60-1.30); GLOMERULAR FILTR. RATE CALC > 60 mL/min (>60); GLUCOSE,RANDOM 73 mg/dL (70-110); POTASSIUM 3.7 mmol/L (3.5-5.1); SODIUM SERUM 140 mmol/L (136-145); UREA NITROGEN, BLOOD 27 mg/dL (7-18)
[2021-02-14 08:48] LABS: ALANINE AMINOTRANSFERASE 23 U/L (12-78); ALBUMIN 4.6 g/dL (3.4-5.0); ALKALINE PHOSPHATASE 55 U/L (46-116); ASPARTATE AMINOTRANSFERASE 18 U/L (15-37); BILIRUBIN,TOTAL 3.3 mg/dL (0.1-1.0); TOTAL PROTEIN, SERUM 8.7 g/dL (6.4-8.2)
[2021-02-14 08:50] LABS: AMPHET/METH SCREEN,URINE POSITIVE (NEGATIVE); BARBITURATE SCREEN, URINE NEGATIVE (NEGATIVE); BENZODIAZEPINES SCREEN,URINE NEGATIVE (NEGATIVE); CANNABINOID SCREEN,URINE POSITIVE (NEGATIVE); COCAINE SCREEN,URINE NEGATIVE (NEGATIVE); METHADONE SCREEN, URINE NEGATIVE (NEGATIVE); OPIATE SCREEN,URINE NEGATIVE (NEGATIVE)
[2021-02-14 08:51] LABS: PHENCYCLIDINE SCREEN,URINE NEGATIVE (NEGATIVE)
[2021-02-14] MEDS ORDERED: LOPERAMIDE HCL 2 MG CAPSULE PO PRN (09:15)
[2021-02-14] MEDS ORDERED: GuaiFENesin/D-METHORPHAN [SUGAR-FREE] 200-20MG/10 ML SYRUP UDCUP PO PRN (09:15)
[2021-02-14] MEDS ORDERED: LORazepam 2 MG TABLET PO PRN (09:15)
[2021-02-14] MEDS ORDERED: OLANZapine 5 MG RAPDIS TABLET PO PRN (09:15)
[2021-02-14] MEDS ORDERED: PROMETHAZINE HCL 25 MG TABLET PO PRN (09:15)
[2021-02-14] MEDS ORDERED: ACETAMINOPHEN 325 MG TABLET PO PRN (09:15)
[2021-02-14] MEDS ORDERED: TUBERCULIN, PURIFIED PROTEIN DERIVATIVE 5 TU/0.1 ML SYRINGE ID ONE (09:15)
[2021-02-14] MEDS ORDERED: MAGNESIUM HYDROXIDE SUSPENSION 30 ML UDCUP PO PRN (09:15)
[2021-02-14] MEDS ORDERED: MAG HYDROX/AL HYDROX/SIMETH ES 30 ML SUSPENSION UDCUP PO PRN (09:15)
[2021-02-14] MEDS: THIAMINE 100 MG TABLET PO SCH (17:57)
[2021-02-14 20:25] VITALS: BP 117/77
[2021-02-14] MEDS: MELATONIN 5 MG TABLET PO SCH (20:45)
[2021-02-14] MEDS: OLANZapine 5 MG RAPDIS TABLET PO SCH (20:45)
[2021-02-14] MEDS: ZOLPIDEM TARTRATE 10 MG TABLET PO PRN (20:46)
[2021-02-15] MEDS: OMEGA-3/DHA/EPA/FISH OIL 1,000 MG CAPSULE PO SCH (08:48)
[2021-02-15] MEDS: MULTIVITAMINS WITH MINERALS, THERAPEUTIC TABLET PO SCH (08:48)
[2021-02-15] MEDS: THIAMINE 100 MG TABLET PO SCH ×2 (08:49→16:25)
[2021-02-15] MEDS: BuPROPion HCL XL 150 MG ER TABLET PO SCH (08:49)
[2021-02-15] MEDS: FOLIC ACID 1 MG TABLET PO SCH (08:49)
[2021-02-15] MEDS: NALTREXONE HCL 50 MG TABLET PO SCH (08:49)
[2021-02-15] MEDS: NICOTINE 21 MG/24 HOUR PATCH TD SCH (08:50)
[2021-02-15 09:38] VITALS: BP 95/60
[2021-02-15 16:00] VITALS: BP 111/65
[2021-02-15] MEDS: ZOLPIDEM TARTRATE 10 MG TABLET PO PRN (20:46)
[2021-02-15] MEDS: MELATONIN 5 MG TABLET PO SCH (20:46)
[2021-02-15] MEDS: OLANZapine 5 MG RAPDIS TABLET PO SCH (20:46)
[2021-02-15] MEDS ORDERED: PALIPERIDONE PALMITATE 234 MG/1.5 ML SYRINGE IM ONE (21:45)
[2021-02-16 08:11] VITALS: BP 118/85
[2021-02-16] MEDS: NALTREXONE HCL 50 MG TABLET PO SCH (08:42)
[2021-02-16] MEDS: MULTIVITAMINS WITH MINERALS, THERAPEUTIC TABLET PO SCH (08:45)
[2021-02-16] MEDS: THIAMINE 100 MG TABLET PO SCH ×2 (08:45→16:24)
[2021-02-16] MEDS: BuPROPion HCL XL 150 MG ER TABLET PO SCH (08:45)
[2021-02-16] MEDS: FOLIC ACID 1 MG TABLET PO SCH (08:45)
[2021-02-16] MEDS: OMEGA-3/DHA/EPA/FISH OIL 1,000 MG CAPSULE PO SCH (08:45)
[2021-02-16] MEDS: NICOTINE 21 MG/24 HOUR PATCH TD SCH (08:46)
[2021-02-16 16:00] VITALS: BP 107/69
[2021-02-16] MEDS: HydrOXYzine PAMOATE 50 MG CAPSULE PO PRN (16:24)
[2021-02-16] MEDS: OLANZapine 5 MG RAPDIS TABLET PO SCH (20:45)
[2021-02-16] MEDS: ZOLPIDEM TARTRATE 10 MG TABLET PO PRN (20:45)
[2021-02-16] MEDS: MELATONIN 5 MG TABLET PO SCH (20:45)
[2021-02-17] MEDS: OMEGA-3/DHA/EPA/FISH OIL 1,000 MG CAPSULE PO SCH (09:12)
[2021-02-17] MEDS: MULTIVITAMINS WITH MINERALS, THERAPEUTIC TABLET PO SCH (09:12)
[2021-02-17] MEDS: NALTREXONE HCL 50 MG TABLET PO SCH (09:12)
[2021-02-17] MEDS: FOLIC ACID 1 MG TABLET PO SCH (09:12)
[2021-02-17] MEDS: BuPROPion HCL XL 150 MG ER TABLET PO SCH (09:12)
[2021-02-17] MEDS: THIAMINE 100 MG TABLET PO SCH ×2 (09:12→16:14)
[2021-02-17] MEDS: NICOTINE 21 MG/24 HOUR PATCH TD SCH (09:18)
[2021-02-17 16:00] VITALS: BP 106/67
[2021-02-17] MEDS: HydrOXYzine PAMOATE 50 MG CAPSULE PO PRN (16:14)
[2021-02-17 20:00] VITALS: BP 107/66
[2021-02-17] MEDS: ZOLPIDEM TARTRATE 10 MG TABLET PO PRN (20:38)
[2021-02-17] MEDS: MELATONIN 5 MG TABLET PO SCH (20:38)
[2021-02-17] MEDS ORDERED: OLANZapine 10 MG RAPDIS TABLET PO SCH (21:00)
[2021-02-18 08:31] VITALS: BP 144/98
[2021-02-18] MEDS ORDERED: BuPROPion HCL XL 150 MG ER TABLET PO SCH (09:00)
[2021-02-18] MEDS ORDERED: MELA5TAB3 PO (09:32)
[2021-02-18] MEDS ORDERED: OLAN10TA26 PO (09:32)
[2021-02-18] MEDS ORDERED: OMEG-135 PO (09:32)
[2021-02-18] MEDS ORDERED: BUPR-49 PO (09:32)
[2021-02-18] MEDS ORDERED: NALT50TA PO (09:32)
[2021-02-18] MEDS: FOLIC ACID 1 MG TABLET PO SCH (10:31)
[2021-02-18] MEDS: THIAMINE 100 MG TABLET PO SCH (10:31)
[2021-02-18] MEDS: OMEGA-3/DHA/EPA/FISH OIL 1,000 MG CAPSULE PO SCH (10:31)
[2021-02-18] MEDS: NALTREXONE HCL 50 MG TABLET PO SCH (10:32)
[2021-02-18] MEDS: MULTIVITAMINS WITH MINERALS, THERAPEUTIC TABLET PO SCH (10:32)
[2021-02-18] MEDS: NICOTINE 21 MG/24 HOUR PATCH TD SCH (10:35)
[2021-02-18] MEDS ORDERED: MULT-1239 PO (10:39)
[2021-02-18] MEDS ORDERED: FOLI-130 PO (10:39)
[2021-02-18] MEDS ORDERED: THIA100T92 PO (10:40)
[2021-02-19] MEDS ORDERED: PALIPERIDONE PALMITATE 156 MG/ML SYRINGE IM ONE (09:00)
== END 2021-02-18 13:00 | disposition home or self-care (01) | DRG 750 ==
LOC: EMS 06:45 → 3EC 16:42
PROVIDERS: ADMIT Psychiatry & Neurology Psychiatry; ATTEND Psychiatry & Neurology Psychiatry
DX: F25.0 Schizoaffective disorder, bipolar type (principal); R45.851 Suicidal ideations; Z59.0 Homelessness; F17.200 Nicotine dependence, unspecified, uncomplicated; Z20.822 Contact with and (suspected) exposure to COVID-19; F12.90 Cannabis use, unspecified, uncomplicated; J45.909 Unspecified asthma, uncomplicated; D72.819 Decreased white blood cell count, unspecified; R79.89 Other specified abnormal findings of blood chemistry; F19.10 Other psychoactive substance abuse, uncomplicated; F31.9 Bipolar disorder, unspecified; F41.9 Anxiety disorder, unspecified; Z91.19 Patient's noncompliance with other medical treatment and regimen
CPT/HCPCS: 80053; 85025; 86592; 99285; A9575; G0480

== ENCOUNTER 2021-05-13 21:23 | Inpatient (IN) | payer MEDICAID, OTHER ==
[~2021-05-13] VITALS: Ht 193 cm; Wt 89.9 kg
[~2021-05-13 21:23] MED LIST changes: +BUPR-49 PO; -BUPR-93 PO; +FOLI-130 PO; +MELA5TAB40 PO; +MULT-1239 PO; +NALT50TA PO; +OLAN10TA26 PO; -OLAN5TAB52 PO; +OMEG-135 PO; +THIA100T92 PO
[2021-05-13 22:28] LABS: BASOPHILS % (AUTO) 0.9 % (0.0-2.0); EOSINOPHILS % (AUTO) 6.5 % (1.0-6.0); HEMATOCRIT 40.2 % (41-53); HEMOGLOBIN 13.9 g/dL (13.5-17.5); LYMPHOCYTES # (AUTO) 1.8 K/uL (1.0-4.8); LYMPHOCYTES % (AUTO) 36.4 % (22.0-44.0); MEAN CORPUSCULAR HEMOGLOBIN 27.7 pg (26.0-34.0); MEAN CORPUSCULAR HGB CONC 34.6 G/dL (31.0-37.0); MEAN CORPUSCULAR VOLUME 80 fL (80-100); MONOCYTES # (AUTO) 0.7 K/uL (0.1-1.0); MONOCYTES % (AUTO) 13.7 % (2.0-9.0); NEUTROPHILS # (AUTO) 2.1 K/uL (1.8-7.7); NEUTROPHILS % (AUTO) 42.5 % (40.0-70.0); PLATELET COUNT (AUTO) 284 K/uL (150-450); RED BLOOD CELL COUNT(AUTO) 5.02 MIL/uL (4.50-5.90); RED CELL DISTRIBUTION WIDTH 14.5 % (11.5-14.5)
[2021-05-13 22:37] LABS: ANION GAP 5 mmol/L (8-16); CALCIUM, TOTAL 9.4 mg/dL (8.8-10.5); CARBON DIOXIDE 33 mmol/L (22-29); CHLORIDE 101 mmol/L (98-107); CREATININE 1.25 mg/dL (0.60-1.30); GLOMERULAR FILTR. RATE CALC > 60 mL/min (>60); GLUCOSE,RANDOM 85 mg/dL (70-110); POTASSIUM 4.1 mmol/L (3.5-5.1); SODIUM SERUM 139 mmol/L (136-145); UREA NITROGEN, BLOOD 20 mg/dL (7-18)
[2021-05-13 22:42] LABS: ALANINE AMINOTRANSFERASE 35 U/L (12-78); ALBUMIN 4.4 g/dL (3.4-5.0); ALKALINE PHOSPHATASE 61 U/L (46-116); ASPARTATE AMINOTRANSFERASE 23 U/L (15-37); BILIRUBIN,TOTAL 1.7 mg/dL (0.1-1.0)
[2021-05-14] LABS: AMPHET/METH SCREEN,URINE POSITIVE (NEGATIVE); BARBITURATE SCREEN, URINE NEGATIVE (NEGATIVE); BENZODIAZEPINES SCREEN,URINE NEGATIVE (NEGATIVE); CANNABINOID SCREEN,URINE POSITIVE (NEGATIVE); COCAINE SCREEN,URINE NEGATIVE (NEGATIVE); METHADONE SCREEN, URINE NEGATIVE (NEGATIVE); OPIATE SCREEN,URINE NEGATIVE (NEGATIVE)
[2021-05-14] LABS: COVID AG,FIA SOURCE NASOPHARYNGEAL
[2021-05-14 00:01] LABS: PHENCYCLIDINE SCREEN,URINE NEGATIVE (NEGATIVE)
[2021-05-14] MEDS ORDERED: HALOPERIDOL 5 MG TABLET PO PRN (06:30)
[2021-05-14] MEDS ORDERED: GuaiFENesin/D-METHORPHAN [SUGAR-FREE] 200-20MG/10 ML SYRUP UDCUP PO PRN (07:30)
[2021-05-14] MEDS ORDERED: MAG HYDROX/AL HYDROX/SIMETH ES 30 ML SUSPENSION UDCUP PO PRN (07:30)
[2021-05-14] MEDS ORDERED: NICOTINE 14 MG/24 HOUR PATCH TD PRN (07:30)
[2021-05-14] MEDS ORDERED: ACETAMINOPHEN 325 MG TABLET PO PRN (07:30)
[2021-05-14] MEDS ORDERED: CloNIDine HCL 0.1 MG TABLET PO PRN (07:30)
[2021-05-14] MEDS ORDERED: ONDANSETRON HCL 4 MG TABLET PO PRN (07:30)
[2021-05-14] MEDS ORDERED: LOPERAMIDE HCL 2 MG CAPSULE PO PRN (07:30)
[2021-05-14] MEDS ORDERED: MAGNESIUM HYDROXIDE SUSPENSION 30 ML UDCUP PO PRN (07:30)
[2021-05-14] MEDS ORDERED: PETROLATUM,WHITE 28 GM JELLY TP PRN (07:30)
[2021-05-14] MEDS ORDERED: DOCUSATE SODIUM 100 MG CAPSULE PO PRN (07:30)
[2021-05-14 19:19] VITALS: BP 125/82
[2021-05-14] MEDS ORDERED: NICOTINE 7 MG/24 HOUR PATCH TD PRN (21:30)
[2021-05-15 07:36] LABS: CHOL/HDL RATIO 2.9 (4.2-7.3)
[2021-05-15 08:00] VITALS: BP 108/77
[2021-05-15] MEDS: ALBUTEROL SULFATE HFA 90 MCG/PUFF 8 GM INHALER IH PRN (08:58)
[2021-05-15] MEDS: LORazepam 2 MG TABLET PO PRN (08:59)
[2021-05-15] MEDS: NALTREXONE HCL 50 MG TABLET PO SCH (11:07)
[2021-05-15] MEDS: BuPROPion HCL XL 150 MG ER TABLET PO SCH (11:07)
[2021-05-15 16:00] VITALS: BP 127/77
[2021-05-15 16:37] VITALS: BP 127/77
[2021-05-15] MEDS: OLANZapine 10 MG TABLET PO SCH (21:01)
[2021-05-15] MEDS: ZOLPIDEM TARTRATE 10 MG TABLET PO PRN (21:01)
[2021-05-16] MEDS: NALTREXONE HCL 50 MG TABLET PO SCH (08:55)
[2021-05-16] MEDS: BuPROPion HCL XL 150 MG ER TABLET PO SCH (08:55)
[2021-05-16 10:09] VITALS: BP 126/76
[2021-05-16] MEDS: ALBUTEROL SULFATE HFA 90 MCG/PUFF 8 GM INHALER IH PRN ×2 (12:15→20:45)
[2021-05-16 15:17] VITALS: BP 139/74
[2021-05-16] MEDS: IBUPROFEN 400 MG TABLET PO PRN (15:17)
[2021-05-16 16:13] VITALS: BP 140/80
[2021-05-16] MEDS: LORazepam 2 MG TABLET PO PRN (16:23)
[2021-05-16] MEDS: OLANZapine 10 MG TABLET PO SCH (20:23)
[2021-05-16] MEDS: ZOLPIDEM TARTRATE 10 MG TABLET PO PRN (20:34)
[2021-05-17] MEDS: IBUPROFEN 400 MG TABLET PO PRN ×2 (00:55→09:04)
[2021-05-17 00:59] VITALS: BP 106/68
[2021-05-17] MEDS: NALTREXONE HCL 50 MG TABLET PO SCH (08:25)
[2021-05-17] MEDS: BuPROPion HCL XL 150 MG ER TABLET PO SCH (08:25)
[2021-05-17 08:55] VITALS: BP 110/72
[2021-05-17] MEDS: ALBUTEROL SULFATE HFA 90 MCG/PUFF 8 GM INHALER IH PRN (09:04)
[2021-05-17 10:01] VITALS: BP 107/69
[2021-05-17] MEDS ORDERED: OLAN10TA74 PO (10:52)
[2021-05-17] MEDS ORDERED: BUPR-93 PO (10:57)
[2021-05-17] MEDS ORDERED: NALT50TA6 PO (10:58)
== END 2021-05-17 13:45 | disposition home or self-care (01) | DRG 750 ==
LOC: EMS 21:25 → 3EI 05-14 17:43
DX: F25.1 Schizoaffective disorder, depressive type (principal); R45.851 Suicidal ideations; E86.0 Dehydration; E78.5 Hyperlipidemia, unspecified; F12.90 Cannabis use, unspecified, uncomplicated; F15.10 Other stimulant abuse, uncomplicated; F17.200 Nicotine dependence, unspecified, uncomplicated; F31.9 Bipolar disorder, unspecified; G47.00 Insomnia, unspecified; F41.9 Anxiety disorder, unspecified; Z79.899 Other long term (current) drug therapy; Z20.822 Contact with and (suspected) exposure to COVID-19
CPT/HCPCS: 80053; 80061; 85025; 99285; G0480; J3535

== ENCOUNTER 2021-05-27 18:18 | Emergency (ER) | payer MEDICAID, OTHER ==
[~2021-05-27] VITALS: Ht 193 cm; Wt 87.3 kg
[~2021-05-27 18:18] MED LIST changes: -BUPR-49 PO; +BUPR-93 PO; -FOLI-130 PO; -MELA5TAB40 PO; -MULT-1239 PO; -NALT50TA PO; +NALT50TA6 PO; -OLAN10TA26 PO; +OLAN10TA74 PO; -OMEG-135 PO; -THIA100T92 PO
[2021-05-27 20:48] LABS: BASOPHILS % (AUTO) 0.3 % (0.0-2.0); EOSINOPHILS % (AUTO) 3.5 % (1.0-6.0); HEMATOCRIT 41.7 % (41-53); HEMOGLOBIN 14.4 g/dL (13.5-17.5); LYMPHOCYTES # (AUTO) 1.8 K/uL (1.0-4.8); MEAN CORPUSCULAR HEMOGLOBIN 27.9 pg (26.0-34.0); MEAN CORPUSCULAR HGB CONC 34.7 G/dL (31.0-37.0); MEAN CORPUSCULAR VOLUME 81 fL (80-100); MONOCYTES # (AUTO) 0.8 K/uL (0.1-1.0); MONOCYTES % (AUTO) 13.9 % (2.0-9.0); NEUTROPHILS % (AUTO) 51.3 % (40.0-70.0); PLATELET COUNT (AUTO) 272 K/uL (150-450); RED BLOOD CELL COUNT(AUTO) 5.17 MIL/uL (4.50-5.90); RED CELL DISTRIBUTION WIDTH 14.2 % (11.5-14.5)
[2021-05-27 20:58] LABS: ANION GAP 7 mmol/L (8-16); CALCIUM, TOTAL 9.1 mg/dL (8.8-10.5); CARBON DIOXIDE 31 mmol/L (22-29); CHLORIDE 102 mmol/L (98-107); CREATININE 1.28 mg/dL (0.60-1.30); GLOMERULAR FILTR. RATE CALC > 60 mL/min (>60); GLUCOSE,RANDOM 92 mg/dL (70-110); POTASSIUM 3.7 mmol/L (3.5-5.1); SODIUM SERUM 140 mmol/L (136-145); UREA NITROGEN, BLOOD 16 mg/dL (7-18)
[2021-05-27 20:58] LABS: AMPHET/METH SCREEN,URINE POSITIVE (NEGATIVE); BARBITURATE SCREEN, URINE NEGATIVE (NEGATIVE); BENZODIAZEPINES SCREEN,URINE NEGATIVE (NEGATIVE); CANNABINOID SCREEN,URINE POSITIVE (NEGATIVE); COCAINE SCREEN,URINE NEGATIVE (NEGATIVE); METHADONE SCREEN, URINE NEGATIVE (NEGATIVE); OPIATE SCREEN,URINE NEGATIVE (NEGATIVE)
[2021-05-27 20:58] LABS: COVID AG,FIA SOURCE NASOPHARYNGEAL
[2021-05-27 20:59] LABS: PHENCYCLIDINE SCREEN,URINE NEGATIVE (NEGATIVE)
[2021-05-27 21:04] LABS: ALANINE AMINOTRANSFERASE 24 U/L (12-78); ALBUMIN 4.3 g/dL (3.4-5.0); ALKALINE PHOSPHATASE 62 U/L (46-116); ASPARTATE AMINOTRANSFERASE 17 U/L (15-37); TOTAL PROTEIN, SERUM 8.3 g/dL (6.4-8.2)
[2021-05-27 22:41] VITALS: BP 127/81
== END 2021-05-28 00:54 | disposition home or self-care (01) ==
LOC: EMS 18:24
DX: R45.851 Suicidal ideations (principal); Z20.822 Contact with and (suspected) exposure to COVID-19
CPT/HCPCS: 36415; 80053; 80307; 85025; 87426; 99284; G0480; 99283

== ENCOUNTER 2021-06-02 16:40 | Emergency (ER) | payer OTHER ==
[~2021-06-02] VITALS: Ht 193 cm; Wt 9.8 kg
[2021-06-02] MEDS ORDERED: PERTUSS(ACELL),DIPH,TET VAC/PF 0.5 ML SYRINGE IM. ONE (17:30)
[2021-06-02] MEDS ORDERED: BACITRACIN 0.9 GM PACKET OINTMENT TP ONE ×2 (17:30→17:45)
[2021-06-02] MEDS ORDERED: AMOX TR/POT CLAV 875 MG/125 MG TABLET PO ONE (17:30)
[2021-06-02 19:41] VITALS: BP 133/81
== END 2021-06-02 20:43 | disposition home or self-care (01) ==
LOC: EMS 16:45
DX: L03.011 Cellulitis of right finger (principal)
CPT/HCPCS: 90471; 90715; 99283

== ENCOUNTER 2022-02-23 19:03 | Inpatient (IN) | payer MEDICAID, OTHER ==
[~2022-02-23] VITALS: Ht 193 cm; Wt 114.8 kg
[~2022-02-23 19:03] MED LIST changes: +BUPR-50 PO; -BUPR-93 PO
[2022-02-23 19:56] LABS: BASOPHILS % (AUTO) 0.4 % (0.0-2.0); EOSINOPHILS % (AUTO) 2.7 % (1.0-6.0); HEMATOCRIT 37.9 % (41-53); HEMOGLOBIN 13.2 g/dL (13.5-17.5); LYMPHOCYTES % (AUTO) 17.9 % (22.0-44.0); MEAN CORPUSCULAR HGB CONC 34.8 G/dL (31.0-37.0); MEAN CORPUSCULAR VOLUME 78 fL (80-100); MONOCYTES # (AUTO) 0.7 K/uL (0.1-1.0); MONOCYTES % (AUTO) 11.8 % (2.0-9.0); NEUTROPHILS # (AUTO) 3.9 K/uL (1.8-7.7); NEUTROPHILS % (AUTO) 67.2 % (40.0-70.0); PLATELET COUNT (AUTO) 270 K/uL (150-450); RED BLOOD CELL COUNT(AUTO) 4.89 MIL/uL (4.50-5.90); RED CELL DISTRIBUTION WIDTH 14.2 % (11.5-14.5)
[2022-02-23 19:58] LABS: ANION GAP 7 mmol/L (8-16); CALCIUM, TOTAL 8.9 mg/dL (8.8-10.5); CARBON DIOXIDE 26 mmol/L (22-29); CHLORIDE 102 mmol/L (98-107); GLUCOSE,RANDOM 100 mg/dL (70-110); POTASSIUM 3.5 mmol/L (3.5-5.1); SODIUM SERUM 135 mmol/L (136-145); UREA NITROGEN, BLOOD 11 mg/dL (7-18)
[2022-02-23 19:59] LABS: GLOMERULAR FILTR. RATE CALC > 60 mL/min (>60)
[2022-02-23 20:03] LABS: ALANINE AMINOTRANSFERASE 22 U/L (12-78); ALKALINE PHOSPHATASE 62 U/L (46-116); ASPARTATE AMINOTRANSFERASE 34 U/L (15-37); BILIRUBIN,TOTAL 1.6 mg/dL (0.1-1.0); TOTAL PROTEIN, SERUM 7.2 g/dL (6.4-8.2)
[2022-02-23] MEDS ORDERED: HALOPERIDOL 5 MG TABLET PO PRN (20:30)
[2022-02-23 20:35] LABS: COVID AG,FIA SOURCE NASAL SWAB
[2022-02-23 20:43] LABS: APPEARANCE,URINE CLEAR (CLEAR); BILIRUBIN,URINE NEGATIVE (NEGATIVE); GLUCOSE, URINE (UA) NEGATIVE (NEGATIVE); KETONES,URINE NEGATIVE (NEGATIVE); LEUKOCYTE ESTERASE ,URINE NEGATIVE (NEGATIVE); NITRATE,URINE NEGATIVE (NEGATIVE); OCCULT BLOOD,URINE NEGATIVE (NEGATIVE); PH,URINE 5.5 (5.0-8.0); PROTEIN,URINE NEGATIVE (NEGATIVE); SPECIFIC GRAVITIY, URINE 1.011 (1.003-1.030); UROBILINOGEN,URINE <=1.0 mg/dL (<=1.0)
[2022-02-23 20:49] LABS: AMPHET/METH SCREEN,URINE POSITIVE (NEGATIVE); BARBITURATE SCREEN, URINE NEGATIVE (NEGATIVE); BENZODIAZEPINES SCREEN,URINE NEGATIVE (NEGATIVE); CANNABINOID SCREEN,URINE NEGATIVE (NEGATIVE); COCAINE SCREEN,URINE NEGATIVE (NEGATIVE); METHADONE SCREEN, URINE NEGATIVE (NEGATIVE); OPIATE SCREEN,URINE NEGATIVE (NEGATIVE)
[2022-02-23 20:51] LABS: PHENCYCLIDINE SCREEN,URINE NEGATIVE (NEGATIVE)
[2022-02-24 02:55] VITALS: BP 136/86
[2022-02-24] MEDS: BuPROPion HCL XL 150 MG ER TABLET PO SCH (10:00)
[2022-02-24 20:15] VITALS: BP 103/68
[2022-02-24] MEDS: OLANZapine 10 MG TABLET PO SCH (20:28)
[2022-02-25] MEDS ORDERED: CloNIDine HCL 0.1 MG TABLET PO PRN (06:15)
[2022-02-25] MEDS ORDERED: ALBUTEROL SULFATE HFA 90 MCG/PUFF 8 GM INHALER IH PRN (06:15)
[2022-02-25] MEDS ORDERED: NICOTINE 14 MG/24 HOUR PATCH TD PRN (06:15)
[2022-02-25] MEDS ORDERED: ACETAMINOPHEN 325 MG TABLET PO PRN (06:15)
[2022-02-25] MEDS ORDERED: LOPERAMIDE HCL 2 MG CAPSULE PO PRN (06:15)
[2022-02-25] MEDS ORDERED: ONDANSETRON HCL 4 MG TABLET PO PRN (06:15)
[2022-02-25] MEDS ORDERED: DOCUSATE SODIUM 100 MG CAPSULE PO PRN (06:15)
[2022-02-25] MEDS ORDERED: GuaiFENesin/D-METHORPHAN [SUGAR-FREE] 200-20MG/10 ML SYRUP UDCUP PO PRN (06:15)
[2022-02-25] MEDS ORDERED: MAGNESIUM HYDROXIDE SUSPENSION 30 ML UDCUP PO PRN (06:15)
[2022-02-25] MEDS ORDERED: PETROLATUM,WHITE 28 GM JELLY TP PRN (06:15)
[2022-02-25] MEDS ORDERED: MAG HYDROX/AL HYDROX/SIMETH ES 30 ML SUSPENSION UDCUP PO PRN (06:15)
[2022-02-25] MEDS ORDERED: IBUPROFEN 400 MG TABLET PO PRN (06:15)
[2022-02-25 08:10] VITALS: BP 104/60
[2022-02-25] MEDS: BuPROPion HCL XL 150 MG ER TABLET PO SCH (08:19)
[2022-02-25] MEDS: LORazepam 2 MG TABLET PO PRN ×2 (09:33→20:10)
[2022-02-25] MEDS: OLANZapine 10 MG TABLET PO SCH (20:10)
[2022-02-25] MEDS: ZOLPIDEM TARTRATE 10 MG TABLET PO PRN (20:11)
[2022-02-25 20:15] VITALS: BP 110/64
[2022-02-26 08:31] VITALS: BP 126/68
[2022-02-26] MEDS: BuPROPion HCL XL 150 MG ER TABLET PO SCH (08:32)
[2022-02-26] MEDS: LORazepam 2 MG TABLET PO PRN ×3 (08:32→20:37)
[2022-02-26 20:07] VITALS: BP 108/62
[2022-02-26] MEDS: ZOLPIDEM TARTRATE 10 MG TABLET PO PRN (20:37)
[2022-02-26] MEDS: OLANZapine 10 MG TABLET PO SCH (20:37)
[2022-02-27] MEDS: BuPROPion HCL XL 150 MG ER TABLET PO SCH (09:27)
[2022-02-27] MEDS: LORazepam 2 MG TABLET PO PRN ×2 (09:27→13:28)
[2022-02-27 20:11] VITALS: BP 118/83
[2022-02-27] MEDS: OLANZapine 10 MG TABLET PO SCH (20:32)
[2022-02-28 08:14] VITALS: BP 126/76
[2022-02-28] MEDS: BuPROPion HCL XL 150 MG ER TABLET PO SCH (08:50)
[2022-02-28] MEDS: OLANZapine 10 MG TABLET PO SCH (20:21)
[2022-02-28 20:36] VITALS: BP 126/91
[2022-03-01 08:20] VITALS: BP 100/60
[2022-03-01] MEDS: BuPROPion HCL XL 150 MG ER TABLET PO SCH (08:33)
[2022-03-01] MEDS: OLANZapine 10 MG TABLET PO SCH (20:17)
[2022-03-01 20:39] VITALS: BP 140/61
[2022-03-02] MEDS: BuPROPion HCL XL 150 MG ER TABLET PO SCH (08:15)
[2022-03-02 08:33] VITALS: BP 112/68
[2022-03-02 09:11] LABS: GLUCOMETER DEV NAME(LOC) POC.BV
[2022-03-02] MEDS: OLANZapine 10 MG TABLET PO SCH (20:11)
[2022-03-02 20:48] VITALS: BP 124/78
[2022-03-03 08:33] VITALS: BP 129/96
[2022-03-03] MEDS: BuPROPion HCL XL 150 MG ER TABLET PO SCH (08:54)
[2022-03-03] MEDS ORDERED: BUPR-50 PO (11:05)
[2022-03-03] MEDS ORDERED: OLAN10TA74 PO (11:05)
== END 2022-03-03 12:30 | disposition home or self-care (01) | DRG 750 ==
LOC: EMS 19:05 → B3A 02-24 00:40 → B2S 03-01 14:30
PROVIDERS: ADMIT Psychiatry & Neurology Psychiatry; ATTEND Psychiatry & Neurology Psychiatry
DX: F25.1 Schizoaffective disorder, depressive type (principal); E87.1 Hypo-osmolality and hyponatremia; R45.851 Suicidal ideations; D64.9 Anemia, unspecified; Z20.822 Contact with and (suspected) exposure to COVID-19; E78.5 Hyperlipidemia, unspecified; F10.10 Alcohol abuse, uncomplicated; F17.210 Nicotine dependence, cigarettes, uncomplicated; F15.10 Other stimulant abuse, uncomplicated; F31.9 Bipolar disorder, unspecified; Z59.00 Homelessness unspecified; Z79.899 Other long term (current) drug therapy
CPT/HCPCS: 80053; 81003; 85025; 99285; G0480

== ENCOUNTER 2022-03-29 17:05 | Inpatient (IN) | payer MEDICAID, OTHER ==
[~2022-03-29] VITALS: Ht 182.9 cm; Wt 105.0 kg
[~2022-03-29 17:05] MED LIST changes: -NALT50TA6 PO
[2022-03-29 17:49] LABS: BASOPHILS % (AUTO) 0.5 % (0.0-2.0); EOSINOPHILS % (AUTO) 8.2 % (1.0-6.0); HEMATOCRIT 39.9 % (41-53); HEMOGLOBIN 13.7 g/dL (13.5-17.5); LYMPHOCYTES # (AUTO) 1.2 K/uL (1.0-4.8); LYMPHOCYTES % (AUTO) 25.2 % (22.0-44.0); MEAN CORPUSCULAR HEMOGLOBIN 26.4 pg (26.0-34.0); MEAN CORPUSCULAR HGB CONC 34.5 G/dL (31.0-37.0); MEAN CORPUSCULAR VOLUME 77 fL (80-100); MONOCYTES # (AUTO) 0.8 K/uL (0.1-1.0); MONOCYTES % (AUTO) 15.9 % (2.0-9.0); NEUTROPHILS # (AUTO) 2.5 K/uL (1.8-7.7); NEUTROPHILS % (AUTO) 50.2 % (40.0-70.0); PLATELET COUNT (AUTO) 252 K/uL (150-450); RED CELL DISTRIBUTION WIDTH 14.6 % (11.5-14.5)
[2022-03-29 17:59] LABS: ANION GAP 7 mmol/L (8-16); CALCIUM, TOTAL 8.8 mg/dL (8.8-10.5); CARBON DIOXIDE 29 mmol/L (22-29); CHLORIDE 102 mmol/L (98-107); CREATININE 1.08 mg/dL (0.60-1.30); GLUCOSE,RANDOM 89 mg/dL (70-110); POTASSIUM 3.6 mmol/L (3.5-5.1); SODIUM SERUM 138 mmol/L (136-145); UREA NITROGEN, BLOOD 9 mg/dL (7-18)
[2022-03-29 18:05] LABS: ALANINE AMINOTRANSFERASE 16 U/L (12-78); ALKALINE PHOSPHATASE 60 U/L (46-116); ASPARTATE AMINOTRANSFERASE 19 U/L (15-37); BILIRUBIN,TOTAL 2.1 mg/dL (0.1-1.0); TOTAL PROTEIN, SERUM 7.3 g/dL (6.4-8.2)
[2022-03-29 18:16] LABS: GLOMERULAR FILTR. RATE CALC > 60 mL/min (>60)
[2022-03-29] MEDS ORDERED: BuPROPion HCL XL 150 MG ER TABLET PO ONE (19:15)
[2022-03-29] MEDS ORDERED: LORazepam 1 MG TABLET PO ONE (19:15)
[2022-03-29] MEDS ORDERED: OLANZapine 5 MG TABLET PO ONE (19:15)
[2022-03-29 19:31] LABS: AMPHET/METH SCREEN,URINE POSITIVE (NEGATIVE); BARBITURATE SCREEN, URINE NEGATIVE (NEGATIVE); BENZODIAZEPINES SCREEN,URINE NEGATIVE (NEGATIVE); CANNABINOID SCREEN,URINE POSITIVE (NEGATIVE); COCAINE SCREEN,URINE NEGATIVE (NEGATIVE); METHADONE SCREEN, URINE NEGATIVE (NEGATIVE); OPIATE SCREEN,URINE NEGATIVE (NEGATIVE)
[2022-03-29 19:32] LABS: PHENCYCLIDINE SCREEN,URINE NEGATIVE (NEGATIVE)
[2022-03-29 23:12] LABS: COVID AG,FIA SOURCE NASAL SWAB
[2022-03-29] MEDS ORDERED: HALOPERIDOL 5 MG TABLET PO PRN (23:45)
[2022-03-29] MEDS ORDERED: ZOLPIDEM TARTRATE 10 MG TABLET PO PRN (23:45)
[2022-03-30] MEDS ORDERED: GuaiFENesin/D-METHORPHAN [SUGAR-FREE] 200-20MG/10 ML SYRUP UDCUP PO PRN (06:15)
[2022-03-30] MEDS ORDERED: LOPERAMIDE HCL 2 MG CAPSULE PO PRN (06:15)
[2022-03-30] MEDS ORDERED: ALBUTEROL SULFATE HFA 90 MCG/PUFF 8 GM INHALER IH PRN (06:15)
[2022-03-30] MEDS ORDERED: MAG HYDROX/AL HYDROX/SIMETH ES 30 ML SUSPENSION UDCUP PO PRN (06:15)
[2022-03-30] MEDS ORDERED: ACETAMINOPHEN 325 MG TABLET PO PRN (06:15)
[2022-03-30] MEDS ORDERED: DOCUSATE SODIUM 100 MG CAPSULE PO PRN (06:15)
[2022-03-30] MEDS ORDERED: NICOTINE 14 MG/24 HOUR PATCH TD PRN (06:15)
[2022-03-30] MEDS ORDERED: MAGNESIUM HYDROXIDE SUSPENSION 30 ML UDCUP PO PRN (06:15)
[2022-03-30] MEDS ORDERED: PETROLATUM,WHITE 28 GM JELLY TP PRN (06:15)
[2022-03-30] MEDS ORDERED: ONDANSETRON HCL 4 MG TABLET PO PRN (06:15)
[2022-03-30] MEDS ORDERED: IBUPROFEN 400 MG TABLET PO PRN (06:15)
[2022-03-30] MEDS ORDERED: CloNIDine HCL 0.1 MG TABLET PO PRN (06:15)
[2022-03-30 06:56] VITALS: BP 109/67
[2022-03-30 08:58] VITALS: BP 115/64
[2022-03-30] MEDS: BuPROPion HCL XL 150 MG ER TABLET PO SCH (10:11)
[2022-03-30 20:27] VITALS: BP 107/74
[2022-03-30] MEDS: OLANZapine 10 MG TABLET PO SCH (21:08)
[2022-03-31 08:31] VITALS: BP 110/61
[2022-03-31] MEDS: BuPROPion HCL XL 150 MG ER TABLET PO SCH (08:31)
[2022-03-31 20:07] VITALS: BP 113/68
[2022-03-31] MEDS: OLANZapine 10 MG TABLET PO SCH (20:20)
[2022-04-01 08:14] VITALS: BP 110/60
[2022-04-01] MEDS: BuPROPion HCL XL 150 MG ER TABLET PO SCH (08:58)
[2022-04-01] MEDS: OLANZapine 10 MG TABLET PO SCH (20:14)
[2022-04-01 20:37] VITALS: BP 113/70
[2022-04-02] MEDS: BuPROPion HCL XL 150 MG ER TABLET PO SCH (08:35)
[2022-04-02 10:05] VITALS: BP 110/68
[2022-04-02] MEDS: OLANZapine 10 MG TABLET PO SCH (20:37)
[2022-04-02 20:52] VITALS: BP 111/81
[2022-04-03 08:30] VITALS: BP 128/76
[2022-04-03] MEDS: BuPROPion HCL XL 150 MG ER TABLET PO SCH (09:21)
[2022-04-03] MEDS: LORazepam 2 MG TABLET PO PRN ×2 (09:23→10:14)
[2022-04-03 11:46] LABS: GLUCOMETER DEV NAME(LOC) POC.BV
[2022-04-03 20:21] VITALS: BP 110/70
[2022-04-03] MEDS: OLANZapine 10 MG TABLET PO SCH (21:10)
[2022-04-04] MEDS: BuPROPion HCL XL 150 MG ER TABLET PO SCH (08:24)
[2022-04-04 08:55] VITALS: BP 132/57
[2022-04-04] MEDS: OLANZapine 10 MG TABLET PO SCH (20:42)
[2022-04-04 20:51] VITALS: BP 117/79
[2022-04-05 08:30] VITALS: BP 119/68
[2022-04-05] MEDS: BuPROPion HCL XL 150 MG ER TABLET PO SCH (09:24)
[2022-04-05] MEDS: LORazepam 2 MG TABLET PO PRN (11:48)
[2022-04-05] MEDS ORDERED: OLAN10 PO (12:11)
[2022-04-05] MEDS ORDERED: BUPR-49 PO (12:11)
== END 2022-04-05 12:45 | disposition home or self-care (01) | DRG 750 ==
LOC: EMS 17:07 → 3EI 22:02 → UNDOADMIN 22:02 → B2S 03-30 00:08
PROVIDERS: ADMIT Psychiatry & Neurology Psychiatry; ATTEND Psychiatry & Neurology Psychiatry
DX: F25.1 Schizoaffective disorder, depressive type (principal); R45.851 Suicidal ideations; Z20.822 Contact with and (suspected) exposure to COVID-19; E78.5 Hyperlipidemia, unspecified; F15.10 Other stimulant abuse, uncomplicated; F12.10 Cannabis abuse, uncomplicated; F31.9 Bipolar disorder, unspecified; F17.200 Nicotine dependence, unspecified, uncomplicated; K59.00 Constipation, unspecified; E66.9 Obesity, unspecified; F14.90 Cocaine use, unspecified, uncomplicated; Z79.899 Other long term (current) drug therapy; Z68.31 Body mass index [BMI] 31.0-31.9, adult; Z59.00 Homelessness unspecified
CPT/HCPCS: 80053; 85025; 99285; G0480